=== PATIENT | female | born 1955 | race Caucasian/White ===

== ENCOUNTER 2025-05-06 10:58 | Outpatient (AMB) | payer MEDICARE, OTHER, SELFPAY ==
--- NOTE | 2025-05-06 11:00 | A.OFFVIS_ITS ---
Intake Visit Reasons: 5 month RLS Allergies No Known Allergies Allergy (Verified 05/06/25 11:03) Medication List - Last Reconciled 05/06/25 by Deneen Michel CNP amlodipine 5 mg PO DAILY bisacodyl 10 mg PO cholecalciferol (vitamin D3) 50 mcg PO DAILY hydrochlorothiazide 25 mg PO DAILY montelukast 10 mg PO BEDTIME pramipexole 1 mg PO BEDTIME roflumilast 500 mcg PO DAILY HPI Comments Details: 70-year-old woman with HTN, COPD, and RLS. She was doing okay. RLS symptoms were generally controlled with medication, occasionally she had to take additional half tablet of pramipexole for total of 1.5mg. Sleep was okay. Mood was okay. Walking with cane, no recent falls. [facility] Medical History (Updated 05/06/25 @ 11:02 by Deneen Michel CNP) Paresthesia of skin RLS (restless legs syndrome) COPD (chronic obstructive pulmonary disease) Hypertension Review of Systems Const Denies chills, Denies daytime sleepiness, Reports difficulty sleeping, Denies fatigue, Denies fever(s), Denies frequent falls, Denies headache(s), Denies increased appetite, Denies poor appetite, Denies snoring, Denies weakness, D enies weight gain and Denies weight loss Eyes Denies loss of vision ENT Denies vertigo, Denies dizziness and Denies headache(s) Card Denies chest pain at rest, Denies chest pain with activity, Denies syncope, Denies leg edema and Denies palpitations Resp Denies snoring GI Denies constipation, Denies heartburn, Denies diarrhea and Denies nausea Denies urinary frequency, Denies urinary incontinence and Denies urinary urgency Musc Denies abnormal gait, Denies numbness and Denies tingling Skin/Breast Denies dry skin and Denies rash Neuro Denies abnormal gait, Denies vertigo, Denies dizziness, Denies syncope, Denies frequent falls, Denies headache(s), Denies lack of coordination, Denies loss of vision, Denies memory loss, Denies numbness, Reports restless legs, Denies seizure-like activity, Denies tingling, Denies paresthesias, Denies tremor(s) and Denies weakness Psych Denies anxiety, Denies depression, Denies auditory hallucinations, Denies memory loss, Denies visual hallucinations and Denies suicidal ideation Endo Denies fatigue and Denies palpitations Physical Exam Const Other: General Appearance:? normal, in no acute distress. Skin:? no rashes, no significant birthmarks. Heart:? S1, S2 normal, no murmurs. Lungs:? clear anteriorly and posteriorly. Extremities:? no edema. Psych:? alert, oriented, cognitive function intact, cooperative with exam. Neuro Other: Mental Status:?Normal attention, orientation, memory and affect.? Cranial Nerves:?Pupils are equal, round and reactive to light. External occular muscles are intact. Visual young are full. Face is symmetrical. Facial sensations are normal. Tongue is midline. Palate elevates symmetrically. Shoulder shrugging is normal. Hearing to bedside conversation is normal. Sensory Exam:?....? Coordination:?No ataxia,?no titubation.? Gait Exam: With cane. Cerebellar Signs:?[id number] and [id number] is normal.? Pronator Drift:?Not present.? Involuntary Movements:?No tremors seen.? Speech:?Normal.? Results Reviewed Results Reviewed: NCV/EMG RLE 01/11/2023: Normal study Assessment & Plan Assessment & Plan (1) RLS (restless legs syndrome): Code(s): G25.81 - Restless legs syndrome Category: Medical Plan: Continue pramipexole 0.5mg 2 tablets before bedtime. Coding Level of Care Code Est Pt Level 3 (09819) Diagnoses RLS (restless legs syndrome) G25.81
--- OUTSIDE RECORDS SUMMARY | 2025-05-06 12:10 | XMS_ITS | Clinical Summary ---
Author Organization [facility] Address [address] [place] [address] Phone Care Team Providers Care Heavy Mobile Equipment Repairer Name Role Phone Hubert Santos MD Primary Care Pr ovider Allergies No known active allergies Medications albuterol HFA (PROAIR HFA ; PROVENTIL HFA ; VENTOLIN HFA) 90 mcg/actuation inhaler Inhale 2 Puffs into the lungs every 6 hours as needed for Cough, Wheezing or Shortness of Breath. 12/16/19 24 Active montelukast (SINGULAIR) 10 mg tablet Take 1 Tablet by mouth at bedtime. 07/18/20 23 Active pramipexole (MIRAPEX) 0.25 mg tablet Take 1 Tablet by mouth daily. 05/31/20 23 Active roflumilast (DALIRESP) 500 mcg tablet Take 1 Tablet by mouth daily. 07/18/20 23 Active multivit-min/ferr ous fumarate (MULTI VITAMIN ORAL) 1 qd Active fluticasone-umecl idinium-vilantero l (Trelegy Ellipta) 100-62.5-25 mcg inhaler INHALE 1 PUFF INTO THE LUNGS DAILY 60 each 11 08/10/20 24 Active ipratropium-albut González (DUONEB) 0.5-2.5 mg/3 mL nebulizer solutionIndicatio ns:COPD exacerbation (CMS/HCC V24, CMS/HCC V28),Chronic obstructive pulmonary disease, unspecified COPD type (CMS/HCC V24, CMS/HCC V28) Take 3 mL by nebulization every 6 (six) hours if needed for wheezing. 360 mL 3 11/21/19 25 Active rosuvastatin (CRESTOR) 10 mg tabletIndications :Mixed hyperlipidemia,Co ronary artery calcification seen on CAT scan Take 1 tablet (10 mg total) by mouth at bedtime. 90 each 1 02/15/20 25 025 Active aspirin 81 mg EC tabletIndications :Coronary artery calcification seen on CAT scan Take 1 tablet (81 mg total) by mouth 1 (one) time each day. 90 each 1 02/15/20 25 025 Active cetirizine (ZyrTEC) 10 mg tabletIndications :Seasonal allergic rhinitis due to pollen Take 1 tablet (10 mg total) by mouth 1 (one) time each day. 90 each 1 02/15/20 25 Active clindamycin (CLEOCIN T) 1 % gelIndications:Fo lliculitis Apply to area twice a day 60 g 02/15/20 25 026 Active Additional Information Patient not taking.Reported on 04/17/2025 cholecalciferol (VITAMIN D-3) 50 mcg (2,000 unit) tabletIndications :Osteopenia, unspecified location Take 1 tablet (2,000 Units total) by mouth 1 (one) time each day. 90 tablet 3 02/15/20 25 026 Active fluticasone propionate (FLONASE) 50 mcg/actuation nasal sprayIndications: Seasonal allergic rhinitis due to pollen USE 1 SPRAY IN EACH NOSTRIL TWICE DAILY 48 g 1 02/16/20 25 Active Additional Information Patient not taking.Reported on 04/17/2025 bisacodyL (DULCOLAX) 5 mg EC tablet Take 2 tablets by mouth right before beginning bowel prep. See instructions provided by the office 2 tablet 04/10/20 Active polyethylene glycol (Golytely) 236-22.74-6.74 -5.86 gram solution Take 4L by mouth once for one dose. May substitue any PEG. Starting at 2PM the day before your procedure drink 1 8oz glasses at your own pace until you complete half of the gallon. Finish 2nd half of the gallon at 8PM. 4000 mL 04/10/20 25 Active Additional Information Patient not taking.Reported on 04/17/2025 sodium,potassium, mag sulfates (Suprep Bowel Prep Kit) 17.5-3.13-1.6 gram recon soln bowel prep kit oral solution Take 177ML by mouth for 2 doses. SEE INSTRUCTIONS PROVIDED BY OFFICE. 1 kit 04/15/20 25 Active amLODIPine (NORVASC) 5 mg tabletIndications :Essential hypertension, benign Take 1 tablet (5 mg total) by mouth 1 (one) time each day. 90 tablet 04/16/20 25 Active hydroCHLOROthiazi de (HYDRODIURIL) 25 mg tabletIndications :Essential hypertension, benign Take 1 tablet (25 mg total) by mouth 1 (one) time each day. 90 tablet 04/16/20 25 Active amLODIPine (NORVASC) 5 mg tabletIndications :Essential hypertension, benign Take 1 tablet (5 mg total) by mouth 1 (one) time each day. 90 tablet 04/05/20 25 025 Discontin ued(Reord er) hydroCHLOROthiazi de (HYDRODIURIL) 25 mg tabletIndications :Essential hypertension, benign Take 1 tablet (25 mg total) by mouth 1 (one) time each day. 90 tablet 04/05/20 25 025 Discontin ued(Reord er) Active Problems Problem Noted Date Diagnosed Date Coronary artery calcification seen on CAT scan 0 02/14/2025 Assessment & Plan (02/14/2025 12:47 PM EDT): Start aspirin daily and Crestor Orders: rosuvastatin (CRESTOR) 10 mg tablet; Take 1 tablet (10 mg total) by mouth at bedtime. aspirin 81 mg EC tablet; Take 1 tablet (81 mg total) by mouth 1 (one) time each day. Prolapse of female pelvic organs 02/14/2025 Urge incontinence of urine 02/14/2025 Seasonal allergic rhinitis due to pollen 025 Assessment & Plan (02/14/2025 12:47 PM EDT): Use Zyrtec daily and Flonase twice daily Orders: cetirizine (ZyrTEC) 10 mg tablet; Take 1 tablet (10 mg total) by mouth 1 (one) time each day. fluticasone propionate (FLONASE) 50 mcg/actuation nasal spray; Administer 1 spray into each nostril 2 (two) times a day. Shake gently. Before first use, prime pump. After use, clean tip and replace cap. Osteopenia 07/01/2023 Assessment & Plan (02/14/2025 12:47 PM EDT): Start vitamin D daily. Will update DEXA scan and vitamin D level Orders: BD Bone Density DXA Axial Skeleton; Future Vitamin D 25 hydroxy; Future cholecalciferol (VITAMIN D-3) 50 mcg (2,000 unit) tablet; Take 1 tablet (2,000 Units total) by mouth 1 (one) time each day. Overweight (BMI 25.0-29.9) 07/01/2023 Serrated adenoma of colon 12/13/2022 Overview (06/24/2024): February 2023: Repeat in 1 year Assessment & Plan (02/14/2025 12:47 PM EDT): Overdue for colonoscopy and is referred Restless leg 11/10/2022 Assessment & Plan (02/14/2025 12:47 PM EDT): Continue [facility] neurology follow-up. Continue pramipexole 0.25 mg daily COPD (chronic obstructive pu lmonary disease) ([facility] V24, [facility] V28) 10/17/2017 Overview (06/24/2024): Last Assessment & Plan: Mrs. Lange, is a heavy smoker. She carries a diagnosis of stage II COPD as per her last pulmonary function test back in 2019. Right now she does have an acute mild COPD exacerbation. I do think at this point will be appropriate at short course of prednisone. She just completed a short course of azithromycin. If she does not improve I advised her to go to the hospital. In addition to advised her regarding quitting smoking, I explained her that the pathophysiology of COPD in simple terms and advised her to continue using her triple therapy with Trelegy. I will do a new pulmonary function testing her next appointment. We will also discuss more in detail regarding pulmonary rehab in her next appointment when we have the new pulmonary function test. Assessment & Plan (02/14/2025 12:47 PM EDT): Will treat COPD exacerbation with prednisone. Will obtain chest x-ray to rule out pneumonia. She will continue with albuterol as needed, DuoNeb as needed, montelukast nightly, Roflumilast daily and Trelegy daily Orders: XR Chest 2 Views; Future predniSONE (DELTASONE) 20 mg tablet; Take 2 tablets (40 mg total) by mouth 1 (one) time each day for 5 days. benzonatate (TESSALON) 100 mg capsule; Take 1 capsule (100 mg total) by mouth 3 (three) times a day if needed for cough. Do not crush or chew. Degenerative arthritis of lumbar spine 0 Herniated lumbar intervertebral disc 03/05/2010 Radiculitis, lumbosacral 03/05/2010 Hyperlipidemia 01/12/2010 Assessment & Plan (02/14/2025 12:47 PM EDT): Her calculated ASCVD risk is elevated. Will start Crestor 10 mg nightly. She will repeat labs in 3 months Orders: Lipid panel with reflex to direct LDL; Future Comprehensive metabolic panel; Future Hemoglobin A1c; Future rosuvastatin (CRESTOR) 10 mg tablet; Take 1 tablet (10 mg total) by mouth at bedtime. Tobacco use disorder 08/22/2006 Assessment & Plan (02/14/2025 12:47 PM EDT): Smoking 1 pack per day of cigarettes. Not ready to quit. Up-to-date with low- dose CT for lung cancer screening which was done in August 2024 Essential hypertension, benign 07/16/2005 Assessment & Plan (02/14/2025 12:47 PM EDT): Current medications. Blood pressure is stable Orders: Comprehensive metabolic panel; Future amLODIPine (NORVASC) 5 mg tablet; Take 1 tablet (5 mg total) by mouth 1 (one) time each day. hydroCHLOROthiazide (HYDRODIURIL) 25 mg tablet; Take 1 tablet (25 mg total) by mouth 1 (one) time each day. Resolved Problems Problem Noted Date Diagnosed Date Resolved Date Folliculitis 02/14/2025 02/14/2025 Assessment & Plan (02/14/2025 12:47 PM EDT): She will apply warm compresses and use clindamycin gel to the area until resolved Orders: clindamycin (CLEOCIN T) 1 % gel; Apply to area twice a day Cigarette smoker 11/16/2023 02/14/2025 Encounters Date Type Department Care Team Description 05/02/2025 Telephone Adult Medicine [address] [phone] Hubert Santos MD Referral (Dermatology ) 05/02/2025 Telephone Urogynecology [address] [place] [phone] Martha Arevalo MD bump on leg 04/30/2025 3:15 PM EDT Office Visit Urogynecology [address] [phone] Martha Arevalo MD Vulvar lesion (Primary Dx); Prolapse of anterior vaginal wall; Prolapse of posterior vaginal wall; Urge incontinence; Urinary urgency; Nocturia 04/29/2025 Telephone Gastroenterology - [address] [place] [phone] Chad Adam MD Results 04/24/2025 9:17 AM EDT Anesthesia Event [facility] [address] [place] [phone] Lorne Hendricks MD 04/24/2025 7:59 AM EDT - 04/24/2025 11:59 PM EDT Hospital Encounter [facility] [address] [place] [phone] Chad Adam MD Barnes, Tyanna R, CRNA Dasilva, John E, MD History of colon polyps Discharge Disposition: Home or Self Care 04/16/2025 Telephone Adult Medicine [address], [place] [phone] Flor Stafford RN 04/15/2025 Telephone Gastroenterology - [address] [facility] [address] [facility] [address] [place] [phone] Chad Adam MD 03/25/2025 3:00 PM EDT Ancillary Procedure Pulmonolgy - [place] [address] [facility] [address] [place] [phone] Chronic obstructive pulmonary disease, unspecified COPD type ([facility]/HCC V24, CMS/[facility] V28) 03/25/2025 Telephone Pulmonolgy [facility] [address] [facility] [address] [place] [phone] Kiana Gallegos NP Forms/questionnaires 03/11/2025 Telephone Pulmonolgy [facility] [address] [facility] [address] [place] [phone] Marguerite Thomas MA 03/07/2025 2:00 PM EDT Procedure visit Urogynecology [address] [phone] Gabi Booker NP Uterine prolapse (Primary Dx); Prolapse of anterior vaginal wall; Vulvar discomfort 03/01/2025 Telephone Adult [address] [phone] Hubert Santos MD Nausea; Abdominal Pain 02/26/2025 Telephone Adult Medicine [address] [phone] Andria Sharif MA call back 02/14/2025 12:45 PM EDT - 02/14/2025 11:59 PM EDT Hospital Encounter [address] [phone] Chronic obstructive pulmonary disease with acute exacerbation ([facility] V24, [facility] V28) Discharge Disposition: Home or Self Care 02/14/2025 12:00 PM EDT Office Visit Adult Medicine [place] - [address] [phone] Hubert Santos MD Annual wellness visit (Primary Dx); Mixed hyperlipidemia; Essential hypertension, benign; Tobacco use disorder; Restless leg; Osteopenia, unspecified location; Chronic obstructive pulmonary disease with acute exacerbation (CMS/HCC V24, CMS/HCC V28); Asymptomatic menopausal state; Encounter for screening for diabetes mellitus; Coronary artery calcification seen on CAT scan; Colon cancer screening; Serrated adenoma of colon; Folliculitis; Seasonal allergic rhinitis due to pollen 02/12/2025 10:00 AM EDT Office Visit Urogynecology - [address] [phone] Martha Arevalo MD Prolapse of anterior vaginal wall (Primary Dx); Uterine prolapse; Prolapse of posterior vaginal wall; Urge incontinence; Urinary urgency; Nocturia from Last 3 Months Immunizations Name Administration Dates Next Due Influenza trivalent, 0.5mL ( Fluzone High-dose) 65yo and older 05/25/2023,07/15/2022,07/10/2021 Moderna (age 6mo & older) Bi valent, COVID-19, 0.5 mL or 0.25 mL dosage 06/01/2022 PPD Test 08/05/2004 Pfizer (ages 12 & older) Bivalent, COVID-19 05/20 Pneumococcal conjugate 20 va lent (Prevnar 20, PCV 20) 2mo and older 05/12/2023 RSV, bivalent, protein subun it RSVpreF, 0.5mL, Preservative Free (Arexvy) 60yo and older 05/25/2023 Tdap Tetanus diptheria acell ular pertussis (Boostrix; Adacel) 7yo and older 05/12/2023,01/12/2010 Surgical History Surgery Date Site/Laterality Comments OTHER SURGICAL HISTORY PROCEDURE: DENIES PREVIOUS SURGERY Medical History Medical History Date Comments Essential hypertension, benign D X:Essential hypertension, benign; COMMENT: on atenolol, started 12/24 Tobacco abuse DX:Tobacco abuse Hyperlipidemia DX:Hyperlipidemi a Cigarette smoker 11/16/2023 Family History Medical History Relation Name Comments Other Dermatological Disorders Father Specifics unknown father with problems on scalp, face, and arms some burned off and some surgically corrected Stroke Maternal Grandfather Breast cancer Mother Hypertension Sister 1 Colon cancer Neg Hx Endometrial cancer Neg Hx Ovarian cancer Neg Hx Relation Name Status Comments Brother heart failure 5 5 Father Alive Maternal Grandfather Mother Sister 1 Sister 2 Alive x2 Social History Tobacco Use Types Packs/Day Years Used Date Smoking Tobacco: Every Day Cigarettes 1 55.1 Started: 03/19/1970 Smokeless Tobacco: Never Tobacco Cessation:Ready to Q uit: Not Asked; Counseling Given: Not Answered Alcohol Use Standard Drinks/Week Comments Yes 0 (1 standard drink = 0.6 oz pur e alcohol) Interpersonal Safety Answer Date Record ed Physical Abuse 04/24/2025 Verbal Abuse 04/24/2025 Comments Unknown Sex and Gender Information Value Date Recorded Sex Assigned at Female 08/31/2024 11:27 AM EST Legal Sex Female 7:21 AM EST Gender Identity Female 08/31/2024 11:27 AM EST Sexual Orientation Straight 08/31/2024 11 :27 AM EST Obstetrics History Last Filed Vital Signs Vital Sign Reading Time Taken Comments Blood Pressure 129/66 04/30/2025 3:15 PM EDT Pulse 82 04/30/2025 3:15 PM EDT Temperature 36.4 C (97.5 F) 04/24/2025 9:43 AM EDT Respiratory Rate 20 04/24/2025 10:03 AM EDT Oxygen Saturation 96% 04/24/2025 10:03 AM EDT Inhaled Oxygen Concentration - - Weight 68.9 kg (152 lb) 04/30/2025 3:15 PM EDT Height 152.4 cm (5') 04/30/2025 3:15 PM EDT Body Mass Index 29.69 04/30/2025 3:15 PM EDT Plan of Treatment Upcoming Encounters Date Type Department Care Team (Late st Contact Info) Description 06/22/2025 11:30 AM EDT Appointment Radiology Department [address] [phone] 06/24/2025 9:30 AM EDT Office Visit Adult Medicine [address] [phone] OgHubert kerns MD [address] [place] [address] 07/22/2025 11:15 AM EST Appointment Bone Density - [place] [address] [place] [phone] 08/20/2025 11:25 AM EST Office Visit Pulmonolgy - [place] [address] [facility] [address] [place] [phone] Kiana Gallegos, SHANNAN [address] [facility] [address] [place] [address] Health Maintenance Due Date Last Done Comments Social Influencers of Health Screening 08/28/2022 Zoster Vaccines (2 of 2) 08/16/2023 06/21/2023 COVID-19 Vaccine ( season) 2024 05/16/2024, 06/21/2023, 06/01/2022, Additional history exists Influenza Vaccine (#1) 2025 , 05/25/2023, 07/15/2022, Additional history exists Lung Cancer Screening (Low Dose CT) 08/31/2025 08/31/2024, 07/26/2023, 07/21/2022, Additional history exists Medicare Annual Wellness Visit 02/14/2026 02/14/2025 Hypertension/CHF/CAD Annual BMP Blood Test 04/15/2026 04/15/2025, 03/29/2024, 03/29/2024 Colorectal Cancer Screening: Colonoscopy 04/24/2026 04/24/2025, 04/17/2025 Falls Risk Assessment 04/24/2026 04/24/2025 , 02/14/2025, 02/14/2025 Breast Cancer Screening 06/16/2026 06/16/20 24, 06/16/2024, 05/07/2023, Additional history exists Cholesterol Screening (Lipid Panel) 04/15/2030 04/15/2025, 03/29/2024, 03/29/2024 Osteoporosis Screening (Bone Density Screening) 2033 2023 DTaP,Tdap,and Td Vaccines (3 - Td or Tdap) 05/12/2033 05/12/2023, 01/12/2010 Hepatitis C Screening Completed 10/17/2017 Pneumococcal Vaccine: 50+ Years Completed 05/12/2023, 06/27/2020 RSV Immunization Adult Patients Completed 05/25/2023 Depression Screening Completed 02/14/2025 HIB Vaccines Aged Out No longer eligi ble based on patient's age to complete this topic HPV Vaccines Aged Out No longer eligi ble based on patient's age to complete this topic Hepatitis A Vaccines Aged Out No long er eligible based on patient's age to complete this topic Hepatitis B Vaccines Aged Out No long er eligible based on patient's age to complete this topic IPV Vaccines Aged Out No longer eligi ble based on patient's age to complete this topic MMR Vaccines Aged Out No longer eligi ble based on patient's age to complete this topic Meningococcal ACWY Vaccine Aged Out N o longer eligible based on patient's age to complete this topic Meningococcal B Vaccine Aged Out No l onger eligible based on patient's age to complete this topic RSV Immunization Patients Under 20 months Aged Out No longer eligible based on patient's age to complete this topic Varicella Vaccines Aged Out No longer eligible based on patient's age to complete this topic Procedures Procedure Name Priority Date/Time Associated Diagnosis Comments COLONOSCOPY Routine 04/24/2025 9:42 AM EDT History of colon polyps TISSUE EXAM Routine 04/24/2025 9:37 AM EDT History of colon polyps COLONOSCOPY Routine 04/17/2025 3:45 PM EDT LIPID PANEL WITH REFLEX TO DIRECT LDL Routine 04/15/2025 9:17 AM EDT Mixed hyperlipidemia COMPREHENSIVE METABOLIC PANEL Routine 04/15/2025 9:17 AM EDT Mixed hyperlipidemia Essential hypertension, benign HEMOGLOBIN A1C Routine 04/15/2025 9:17 AM EDT Mixed hyperlipidemia Encounter for screening for diabetes mellitus VITAMIN D 25 HYDROXY Routine 04/15/2025 9:17 AM EDT Osteopenia, unspecified location PULMONARY FUNCTION TESTING Routine 03/25/2025 3:31 PM EDT Chronic obstructive pulmonary disease, unspecified COPD type (CMS/HCC V24, CMS/HCC V28) XR CHEST 2 VIEWS Routine 02/14/2025 12:5 4 PM EDT Chronic obstructive pulmonary disease with acute exacerbation (CMS/HCC V24, CMS/HCC V28) POC URINE AUTO W/O MICRO Routine 02/12/2025 10:13 AM EDT Uterine prolapse CT LUNG SCREENING Routine 08/31/2024 11: 39 AM EST Smoker SCREENING MAMMOGRAPHY BI 2-VIEW BREAST INC CAD Routine 06/16/2024 10:57 AM EDT Encounter for screening mammogram for malignant neoplasm of breast DXA BONE DENSITY STUDY 1+ SITS AXIAL SKEL Routine 2023 11:32 AM EDT Other specified personal risk factors, not elsewhere classified HEPATITIS C SCREENING Routine 10/17/2017 from Last 3 Months or Most Recently Relevant to Health Maintenance Results * COLONOSCOPY Anesthesia - [facility]; [facility] ENDOSCOPY (04/24/2025 9:42 AM EDT) Only the most recent of2 resultswithin the time period is included. Anatomical Region Laterality Modality Other 04/24/2025 9:16 AM EDT Impressions 04/24/2025 9:48 AM EDT - Diverticulosis in the sigmoid colon and in the descending colon. - One 13 mm polyp in the proximal sigmoid colon, removed with a hot snare. Resected and retrieved. Tattooed. Clip (MR conditional) was placed. Clip oven baker: Sensicore. - The examination was otherwise normal on direct and retroflexion views. - A single (solitary) ulcer in the proximal ascending colon. Biopsied. Recommendation: - Await pathology results. - Repeat colonoscopy in 1 year for surveillance. Narrative 04/24/2025 9:[address] [facility] Patient Name: Teresita Lange Procedure Date: 04/24/2025 9:16 AM Date of : 1955 Age: 70 Room: ROOM 15 Gender: Female Note Status: Finalized Attending MD: Chad Adam MD, Procedure Date No Time: 04/24/2025 Procedure: Colonoscopy Indications: High risk colon cancer surveillance: Personal history of colonic polyps Providers: Chad Adam MD Referring MD: Chad Adam MD Medicines: Propofol per Anesthesia Complications: No immediate complications. Estimated Blood Loss: Estimated blood loss was minimal. Procedure: Pre-Anesthesia Assessment: - ASA Grade Assessment: II - A patient with mild systemic disease. After I obtained informed consent, the scope was passed under direct vision. Throughout the procedure, the patient's blood pressure, pulse, and oxygen saturations were monitored continuously.The Colonoscope was introduced through the anus and advanced to the cecum, identified by appendiceal orifice and ileocecal valve. The colonoscopy was performed without difficulty. The patient tolerated the procedure well. The quality of the bowel preparation was good. Findings: The perianal and digital rectal examinations were normal. Multiple diverticula were found in the sigmoid colon and descending colon. A 13 mm polyp was found in the proximal sigmoid colon. The polyp was flat. The polyp was removed with a hot snare. Resection and retrieval were complete. Area was tattooed with an injection of Alyssa ink. To prevent bleeding after the polypectomy, one hemostatic clip was successfully placed (MR conditional). Clip oven baker: Sensicore. There was no bleeding at the end of the procedure. The exam was otherwise without abnormality on direct and retroflexion views. A single (solitary) seven mm ulcer was found in the proximal ascending colon. No bleeding was present. No stigmata of recent bleeding were seen. Biopsies were taken with a cold forceps for histology. I suspect this is focal ischemia Procedure Code(s): --- Professional --- 22964, Colonoscopy, flexible; with removal of tumor(s), polyp(s), or other lesion(s) by snare technique 07661, Colonoscopy, flexible; with directed submucosal injection(s), any substance 07517, 59, Colonoscopy, flexible; with biopsy, single or multiple Diagnosis Code(s): --- Professional --- Z86.010, Personal history of colonic polyps D12.5, Benign neoplasm of sigmoid colon K63.3, Ulcer of intestine K57.30, Diverticulosis of large intestine without perforation or abscess without bleeding CPT copyright 2020 [employer]. All rights reserved. The codes documented in this report are preliminary and upon certified coder review may be revised to meet current compliance requirements. Chad Adam MD 04/24/2025 9:48:16 AM This report has been signed electronically.Chad Adam MD Number of Addenda: 0 Note Initiated On: 04/24/2025 9:16 AM Scope In: Scope Out: Endoscopy Department at [facility] - [address] [place] [phone] Procedure Note Chad Adam MD - 04/24/2025 [facility] Patient Name: Teresita Lange Procedure Date: 04/24/2025 9:16 AM Date of : 1955 Age: 70 Room: ROOM 15 Gender: Female Note Status: Finalized Attending MD: Chad Adam MD, Procedure Date No Time: 04/24/2025 Procedure: Colonoscopy Indications: High risk colon cancer surveillance: Personalhistory of colonic polyps Providers: Chad Adam MD Referring MD: Chad Adam MD Medicines: Propofol per Anesthesia Complications: No immediate complications. Estimated Blood Loss: Estimated blood loss was minimal. Procedure: Pre-Anesthesia Assessment: - ASA Grade Assessment: II - A patient with mild systemic disease. After I obtained informed consent, the scope was passed under direct vision. Throughout theprocedure, the patient's blood pressure, pulse, and oxygen saturations were monitored continuously.The Colonoscope was introduced through the anus and advanced to the cecum, identified by appendiceal orifice and ileocecal valve. The colonoscopy was performed without difficulty. The patient tolerated the procedure well. The quality of the bowel preparation was good. Findings: The perianal and digital rectal examinations were normal. Multiple diverticula were found in the sigmoidcolon and descending colon. A 13 mm polyp was found in the proximal sigmoidcolon. The polyp was flat. The polyp was removed with ahot snare. Resection and retrieval were complete. Areawas tattooed with an injection of Alyssa ink. To prevent bleeding after the polypectomy, one hemostatic clip was successfully placed (MR conditional). Clip oven baker: Weldon Xignite. There was nobleeding at the end of the procedure. The exam was otherwise without abnormality ondirect and retroflexion views. A single (solitary) seven mm ulcer was found in the proximal ascending colon. No bleeding was present.No stigmata of recent bleeding were seen. Biopsieswere taken with a cold forceps for histology. I suspect this is focal ischemia Procedure Code(s): --- Professional --- 18251, Colonoscopy, flexible; with removal of tumor(s), polyp(s), or other lesion(s) by snare technique 44448, Colonoscopy, flexible; with directedsubmucosal injection(s), any substance 70686, 59, Colonoscopy, flexible; with biopsy,single or multiple Diagnosis Code(s): --- Professional --- Z86.010, Personal history of colonic polyps D12.5, Benign neoplasm of sigmoid colon K63.3, Ulcer of intestine K57.30, Diverticulosis of large intestine without perforation or abscess without bleeding CPT copyright 2020 [employer]. All rights reserved. The codes documented in this report are preliminary and upon certified coder reviewmay be revised to meet current compliance requirements. Chad Adam MD 04/24/2025 9:48:16 AM This report has been signed electronically.Chad Adam MD Number of Addenda: 0 Note Initiated On: 04/24/2025 9:16 AM Scope In: Scope Out: Endoscopy Department at [facility] - [address] [place] [phone] IMPRESSION: - Diverticulosis in the sigmoid colon and in the descending colon. - One 13 mm polyp in the proximal sigmoid colon, removed with a hot snare. Resected and retrieved. Tattooed. Clip (MR conditional) was placed. Clip oven baker: Weldon Xignite. - The examination was otherwise normal on directand retroflexion views. - A single (solitary) ulcer in the proximalascending colon. Biopsied. Recommendation: - Await pathology results. - Repeat colonoscopy in 1 year for surveillance. us Chad Adam MD GI~PROCEDURE ORDERABLES Fin al Result * Tissue exam (04/24/2025 9:37 AM EDT) Final Diagnosis A. Large Intestine, Sigmoid Colon, polyp: - Tubular adenoma. B. Large Intestine, Right/Ascending Colon, ulcer biopsy: - Colonic mucosa with ulcer and granulation tissue. - Negative for dysplasia. Note: Part B, the etiology of ulcer is non-specific. 04/25/2025 12:52 PM EDT [facility] Gross Description A. Large Intestine, Sigmoid Colon, polyp: Labeled sig colon polyp . Received in formalin, is an approximately 0.7 cm in greatest diameter soft to rubbery, borden-pink to red, polypoid tissue fragment, inked green at the margin, admixed with fecal/food debris, which is wrapped in paper and submitted in toto in one cassette, one piece, multiple levels. B. Large Intestine, Right/Ascending Colon, ulcer biopsy: Labeled ascend colon ulcer bio . Received in formalin are two soft to rubbery, borden-pink to red, tissue fragments, approximately measuring 0.45 cm and 0.5 cm in greatest diameters, which are wrapped in paper and submitted in toto in one cassette, two pieces, multiple levels. hs/DG 04/25/2025 12:52 PM EDT [facility] Disclaimer Unless otherwise specified, all tissue is 10% NB formalin fixed and paraffin embedded. 04/25/2025 12:52 PM EDT [facility] Tissue Ascending colon structure / Unknown 04/24/2025 9:37 AM EDT 04/24/2025 10:26 AM EDT Tissue specimen (specimen) Sigmoid colon structure / Unknown 04/24/2025 9:40 AM EDT 04/24/2025 10:26 AM EDT us Chad Adam MD LAB PATHOLOGY ORDERABLES Fi nal Result [facility] [address] [place] [address], * Lipid panel with reflex to direct LDL (04/15/2025 9:17 AM EDT) Cholesterol 168 0 - 200 mg/dL LAB CHEMISTRY METHOD 04/15/2025 1:34 PM EDT [facility] Triglycerides 129 0 - 150 mg/dL LAB CHEMISTRY METHOD 04/15/2025 1:34 PM EDT [facility] HDL 83 >=40 mg/dL LAB CHEMISTRY METHOD 04/15/2025 1:34 PM EDT [facility] LDL Calculated 59 0 - 100 mg/dL LAB CHEMISTRY METHOD 04/15/2025 1:34 PM EDT [facility] VLDL Cholesterol Greg 25.8 mg/dL LAB CHEMISTRY METHOD 04/15/2025 1:34 PM EDT [facility] Non HDL Chol. (LDL+VLDL) 85 <145 mg/dL LAB CHEMISTRY METHOD 04/15/2025 1:34 PM EDT [facility] Chol/HDL Ratio 2.0 0.0 - 4.4 LAB CHEMISTRY METHOD 04/15/2025 1:34 PM EDT [facility] Blood Venous blood specimen / Unknown Venipuncture / Unknown 04/15/2025 9:17 AM EDT 04/15/2025 9:17 AM EDT Hubert Santos MD LAB BLOOD ORDERA BLES Final Result [facility] [address] [place] [address], * Vitamin D 25 hydroxy (04/15/2025 9:17 AM EDT) Pathologist [facility] Vit D, 25-Hydroxy 34.6 30.0 - 80.0 ng/mL LAB CHEMISTRY METHOD 04/15/2025 2:05 PM EDT [facility] Blood Venous blood specimen / Unknown Venipuncture / Unknown 04/15/2025 9:17 AM EDT 04/15/2025 9:17 AM EDT Hubert Santos MD LAB BLOOD ORDERA BLES Final Result Performing Organization Address City/[facility]/ZIP Co de Phone Number [facility] [address] [place] [address], [place] [phone] * Hemoglobin A1c (04/15/2025 9:17 AM EDT) Pathologist [facility] Hemoglobin A1C 5.5 <6.5 % LAB CHEMISTRY METHOD 04/15/2025 1:07 PM EDT [facility] Mean Bld Glu Estim. 111 mg/dL LAB CHEMISTRY METHOD 04/15/2025 1:07 PM EDT [facility] Blood Venous blood specimen / Unknown Venipuncture / Unknown 04/15/2025 9:17 AM EDT 04/15/2025 9:17 AM EDT Hubert Santos MD LAB BLOOD ORDERA BLES Final Result [facility] [address] [place] [address], [place] [phone] * (ABNORMAL) Comprehensive metabolic panel (04/15/2025 9:17 AM EDT) Pathologist [facility] Sodium 132(L) 133 - 145 mmol/L LAB CHEMISTRY METHOD 04/15/2025 1:34 PM EDT [facility] Potassium 3.7 3.5 - 5.5 mmol/L LAB CHEMISTRY METHOD 04/15/2025 1:34 PM EDT [facility] Chloride 95(L) 96 - 110 mmol/L LAB CHEMISTRY METHOD 04/15/2025 1:34 PM EDT [facility] CO2 31 21 - 32 mmol/L LAB CHEMISTRY METHOD 04/15/2025 1:34 PM EDT [facility] Anion Gap 6 3 - 11 LAB CHEMISTRY METHOD 04/15/2025 1:34 PM [facility] Glucose 93 70 - 100 mg/dL LAB CHEMISTRY METHOD 04/15/2025 1:34 PM [facility] BUN 14 5 - 25 mg/dL LAB CHEMISTRY METHOD 04/15/2025 1:34 PM [facility] Creatinine 0.63 0.50 - 1.10 mg/dL LAB CHEMISTRY METHOD 04/15/2025 1:34 PM [facility] eGFR 95 >=60 mL/min/1. 73m2 LAB CHEMISTRY METHOD 04/15/2025 1:34 PM [facility] Comment:Calculation based on the Chronic Kidney Disease Epidemiology Collaboration (CKD-EPI) equation refit without adjustment for race. BUN/Creatinine Ratio 22.2 LAB CHEMISTRY METHOD 04/15/2025 1:34 PM [facility] Calcium 9.3 8.5 - 10.5 mg/dL LAB CHEMISTRY METHOD 04/15/2025 1:34 PM [facility] AST (SGOT) 16 10 - 42 unit/L LAB CHEMISTRY METHOD 04/15/2025 1:34 PM [facility] ALT (SGPT) 21 10 - 60 unit/L LAB CHEMISTRY METHOD 04/15/2025 1:34 PM [facility] Alkaline Phosphatase 89 42 - 121 unit/L LAB CHEMISTRY METHOD 04/15/2025 1:34 PM [facility] Total Protein 6.8 6.0 - 8.0 g/dL LAB CHEMISTRY METHOD 04/15/2025 1:34 PM [facility] Albumin 3.9 3.2 - 5.0 g/dL LAB CHEMISTRY METHOD 04/15/2025 1:34 PM [facility] Total Bilirubin 0.5 0.0 - 1.4 mg/dL LAB CHEMISTRY METHOD 04/15/2025 1:34 PM EDT [facility] Blood Venous blood specimen / Unknown Venipuncture / Unknown 04/15/2025 9:17 AM EDT 04/15/2025 9:17 AM EDT Hubert Santos MD LAB BLOOD ORDERA BLES Final Result [facility] [address] [place] [address], * XR Chest 2 Views (02/14/2025 12:54 PM EDT) Anatomical Region Laterality Modality Body Radiographic Nava ging 02/14/2025 2:41 PM EDT Narrative 02/14/2025 2:42 PM EDT Chest, 2 views. History cough. Chronic obstructive pulmonary disease. Shortness of breath. Comparison with prior studies, latest from 07/05/2022. Lungs are hyperinflated. There is no pneumothorax, pleural effusions or congestive heart failure. There is mild scarring at the left base. Cardiomediastinal silhouette is unremarkable. CONCLUSIONS: No acute radiographic abnormalities. No significant interval change. -------- FINAL REPORT -------- Dictated By: Lisa Tamayo Dictated Date: 02/14/2025 14:41 ET Assigned Physician: Lisa Tamayo Reviewed and Electronically Signed By: Lisa Tamayo Signed Date: 02/14/2025 14:42 ET Workstation ID: [id number] Transcribed By: Self Edit Transcribed Date: 02/14/2025 14:41 ET Procedure Note Lisa Tamayo MD - 02/14/2025 Chest, 2 views. History cough. Chronic obstructive pulmonary disease. Shortness ofbreath. Comparison with prior studies, latest from 07/05/2022. Lungs arehyperinflated. There is no pneumothorax, pleural effusions or congestiveheart failure. There is mild scarring at the left base.Cardiomediastinal silhouette is unremarkable. CONCLUSIONS: No acute radiographic abnormalities. No significant intervalchange. -------- FINAL REPORT -------- Dictated By: Lisa Tamayo Dictated Date: 02/14/2025 14:41 ET Assigned Physician: Lisa Tamayo Reviewed and Electronically Signed By: Lisa Tamayo Signed Date: 02/14/2025 14:42 ET Workstation ID: [id number] Transcribed By: Self Edit Transcribed Date: 02/14/2025 14:41 ET Hubert Santos MD IMG XR PROCEDURE S Final Result * POC Urine Auto W/O Micro (02/12/2025 10:13 AM EDT) Glucose UA POC Negative Negative, Trace mg/dL Bilirubin UA POC Negative Negative, Small Ketones UA POC Negative Negative, Trace Specific Waves UA POC 1.015 Blood UA POC Negative Negative, Large PH UA POC 7.5 Protein UA POC Negative Negative, >=300 mg/dL Urobilinogen UA POC 0.2 E.U./dL mg/dL Nitrite UA POC Negative Negative Leukocytes UA POC Negative Negative Urine Urine specimen obtained by clean catch procedure / Unknown 02/12/2025 10:13 AM EDT Martha Arevalo MD POINT OF CARE TEST ENTER/EDIT OR DERABLES Final Result * CT Lung Screening (08/31/2024 11:39 AM EST) Anatomical Region Laterality Modality Chest Computed Tomogra phy 09/03/2024 12:0 5 PM EST Impressions 09/03/2024 12:19 PM EST Impression: No suspicious developing pulmonary nodule. No significant change. Lung-RADS Category: Lung-RADS 2: Nodule(s) with benign appearance or behavior. Continue annual screening with Low Dose Chest CT in 12 months. Recommendations: Continue annual screening with low-dose noncontrast chest CT in 12 months. -------- FINAL REPORT -------- Dictated By: Charlette uGzman Dictated Date: 09/03/2024 12:05 ET Assigned Physician: Charlette Guzman Reviewed and Electronically Signed By: Charlette Guzman Signed Date: 09/03/2024 12:19 ET Workstation ID: [id number] Transcribed By: Self Edit Transcribed Date: 09/03/2024 12:05 ET Narrative 09/03/2024 12:19 PM EST History: 69 year-old 55 pack-year current smoker, asymptomatic, for lung cancer screening. Comparison: 07/21/23 Technique: Helical volumetric imaging of the thorax was performed, using low- dose technique, without IV contrast. DLP: 165.56 mGy/cm CTDIvol: 4.83 mGy GE SeatNinjapeed VCT Iterative reconstruction technique Findings: Lungs and Airways: The trachea and central bronchial tree remain patent. Centrilobular emphysema is again seen. Minimal subsegmental atelectasis is noted at the lung bases, unchanged. There is a 10 mm part solid nodule in the superior segment of the left lower lobe (image 123 series 3) with solid component approximately 5 mm in aggregate size, without significant change dating back to 2021. A 3 mm solid, noncalcified nodule, also in the superior segment of the left lower lobe (image 114 series 3) is unchanged dating back to the initial, [address] No suspicious developing nodule is seen. Pleura: No pleural or pericardial effusions are seen. Base of neck, mediastinum and heart: The heart remains normal in size. Atherosclerotic calcification of the thoracic aorta and coronary arteries (three-vessel) is again noted. No developing thoracic lymphadenopathy is seen. There is no suspicious thyroid nodule. Soft tissues: The overlying soft tissues are unremarkable. Abdomen: This study was performed without contrast and with lower than standard dose. These factors reduce the sensitivity for detection of small lesions in the upper abdomen. No significant abnormality is seen. Procedure Note Charlette Guzman MD - 09/03/2024 History: 69 year-old 55 pack-year current smoker, asymptomatic, for lungcancer screening. Comparison: 07/21/23 Technique: Helical volumetric imaging of the thorax was performed, usinglow-dose technique, without IV contrast. DLP: 165.56 mGy/cm CTDIvol: 4.83 mGy GE SeatNinjapeed VCT Iterative reconstruction technique Findings: Lungs and Airways: The trachea and central bronchial tree remain patent.Centrilobular emphysema is again seen. Minimal subsegmental atelectasis isnoted at the lung bases, unchanged. There is a 10 mm part solid nodule in the superior segment of the leftlower lobe (image 123 series 3) with solid component approximately 5 mm inaggregate size, without significant change dating back to 2021. A 3 mmsolid, noncalcified nodule, also in the superior segment of the left lowerlobe (image 114 series 3) is unchanged dating back to the initial, 2019lung screening CT. No suspicious developing nodule is seen. Pleura: No pleural or pericardial effusions are seen. Base of neck, mediastinum and heart: The heart remains normal in size.Atherosclerotic calcification of the thoracic aorta and coronary arteries(three-vessel) is again noted. No developing thoracic lymphadenopathy isseen. There is no suspicious thyroid nodule. Soft tissues: The overlying soft tissues are unremarkable. Abdomen: This study was performed without contrast and with lower thanstandard dose. These factors reduce the sensitivity for detection of smalllesions in the upper abdomen. No significant abnormality is seen. IMPRESSION: Impression: No suspicious developing pulmonary nodule. No significant change. Lung-RADS Category: Lung-RADS 2: Nodule(s) with benign appearance orbehavior. Continue annual screening with Low Dose Chest CT in 12 months. Recommendations: Continue annual screening with low-dose noncontrast chestCT in 12 months. -------- FINAL REPORT -------- Dictated By: Charlette Guzman Dictated Date: 09/03/2024 12:05 ET Assigned Physician: Charlette Guzman Reviewed and Electronically Signed By: Charlette Guzman Signed Date: 09/03/2024 12:19 ET Workstation ID: [id number] Transcribed By: Self Edit Transcribed Date: 09/03/2024 12:05 ET us Ragini Wise MD IMG CT PROCEDURES Final Result * SCREENING MAMMOGRAPHY BI 2-VIEW BREAST INC CAD (06/16/2024 10:57 AM EDT) Anatomical Region Laterality Modality Radiographic Nava ging 05/07/2023 11:4 2 AM EDT Narrative 06/16/2024 3:59 PM EDT This is a summary report. The complete report is available in the patient's medical record. If you cannot access the medical record, please contact the sending organization for a detailed fax or copy. Full field digital screening tomosynthesis mammography, reviewed with CAD and compared to previous. The breast tissue is heterogeneously dense, limiting sensitivity. No suspicious mass, architectural distortion or suspicious calcifications are identified. IMPRESSION: : Dense breast tissue, limiting the sensitivity of mammography. No mammographic evidence of malignancy. BIRADS 1-Negative; N. Breast density: The breasts are heterogeneously dense, which may obscure small masses. 5 year breast cancer risk assessment 3.2 % Lifetime breast cancer risk assessment 9.2 % Breast cancer risk category Low (<15%) Location: [facility], [address] [place] [address], [id number], [phone] Procedure Note Lisa Tamayo MD - 07/04/2024 This is a summary report. The complete report is available in thepatient's medical record. If you cannot access the medical record, pleasecontact the sending organization for a detailed fax or copy. Full field digital screening tomosynthesis mammography, reviewed with CADand compared to previous. The breast tissue is heterogeneously dense,limiting sensitivity. No suspicious mass, architectural distortion orsuspicious calcifications are identified. IMPRESSION: : Dense breast tissue, limiting the sensitivity of mammography. Nomammographic evidence of malignancy. BIRADS 1-Negative; N. Breast density: The breasts are heterogeneously dense, which may obscuresmall masses. 5 year breast cancer risk assessment 3.2 % Lifetime breast cancer risk assessment 9.2 % Breast cancer risk category Low (<15%) Location: [facility], [address] [place] [address], [address], [phone] Ava Andres MD IMG XR PROCEDURES Final Result * DXA BONE DENSITY STUDY 1+ SITS AXIAL SKEL (2023 11:32 AM EDT) Anatomical Region Laterality Modality Bone Densitometr y 11/10/2022 11:4 8 AM EST Narrative 2023 1:05 PM EDT BONE DENSITY Lumbar Spine T-score is +2.4 (SD relative to 20-29 y/o adult) Z-score is +4.4 (SD relative to age matched peers) This is normal by criteria defined by the WHO. Left Hip T-score is -1.7 Z-score is 0.0 This is consistent with osteopenia by criteria defined by the WHO. Impression: Based on the World Health Organization criteria, Teresita Lange should be classified as having osteopenia. This patient has a 21% risk of major osteoporotic fracture and a 7.0% risk of hip fracture over the next 10 years. (World Health Organization Fracture Risk Assessment) [facility] Department of Internal Medicine recommends using National Osteoporosis Foundation (NOF) guidelines in treatment decisions related to osteoporosis. NOF guidelines suggest considering treatment for postmenopausal women and men aged 50 or older presenting with the following: History of hip or vertebral fracture. T-score less than or equal to -2.5 (DXA) at the femoral neck, total hip, or spine, after appropriate evaluation to exclude secondary causes. Low bone mass (T-score between -1.0 and -2.5 at the femoral neck or spine) AND a 10-year probability of a hip fracture greater than or equal to 3% OR a 10-year probability of a major osteoporosis-related fracture greater than or equal to 20% based on the [place]-adapted WHO algorithm Please note that all treatment decisions require clinical judgment and consideration of individual patient factors, including patient preferences, co-morbidities, previous drug use, risk factors not captured in the FRAX model (e.g., frailty, falls, vitamin D deficiency, increased bone turnover, interval significant decline in bone density) and possible under- or over-estimation of fracture risk by FRAX. Procedure Note Rylan Garcia MD - 10/24/2023 BONE DENSITY Lumbar Spine T-score is +2.4 (SD relative to 20-29 y/o adult) Z-score is +4.4 (SD relative to age matched peers) This is normal by criteria defined by the WHO. Left Hip T-score is -1.7 Z-score is 0.0 This is consistent with osteopenia by criteria defined by the WHO. Impression: Based on the World Health Organization criteria, Teresita Lange shouldbe classified as having osteopenia. This patient has a 21% risk of majorosteoporotic fracture and a 7.0% risk of hip fracture over the next 10years. (World Health Organization Fracture Risk Assessment) [facility] Department of Internal Medicine recommendsusing National Osteoporosis Foundation (NOF) guidelines in treatmentdecisions related to osteoporosis. NOF guidelines suggest consideringtreatment for postmenopausal women and men aged 50 or older presentingwith the following: History of hip or vertebral fracture. T-score less than or equal to -2.5 (DXA) at the femoral neck, total hip,or spine, after appropriate evaluation to exclude secondary causes. Low bone mass (T-score between -1.0 and -2.5 at the femoral neck or spine)AND a 10-year probability of a hip fracture greater than or equal to 3% ORa 10-year probability of a major osteoporosis-related fracture greaterthan or equal to 20% based on the [place]-adapted WHO algorithm Please note that all treatment decisions require clinical judgment andconsideration of individual patient factors, including patientpreferences, co-morbidities, previous drug use, risk factors not capturedin the FRAX model (e.g., frailty, falls, vitamin D deficiency, increasedbone turnover, interval significant decline in bone density) and possibleunder- or over-estimation of fracture risk by FRAX. Giuliano AMADOR IMG DXA PROCEDURES Final Result * Hepatitis C Screening (10/17/2017) [facility] Hepatitis C Screening abstracted Historical Provider HEALTH MAINTENANCE Final Result from Last 3 Months or Most Recently Relevant to Health Maintenance [facility] Heavy Mobile Equipment Repairer Relationship Specialty Start Date End Date Hubert Santos MD [address] [place] [id number] PCP - General 01/23/24
--- OUTSIDE RECORDS SUMMARY | 2025-05-06 12:10 | XMS_ITS | Patient Health Record ---
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 Role Phone Hubert Santos Primary Care Provider Unav ailable Black, Ame Unavailable [phone] Allergies Allergen (clinical drug ingredient) Drug/Non Drug Allergy documented on EMR Reaction Allergy Type Onset Date Status erythromycin Erythromycin Unknown Drug Allergy I nactive Reason For Referral No Information Medications Medication SIG (Take, Route, Frequency, Duration) Notes Start Date End Date Status Loratadine 10 MG 1 tablet Orally Once a day; Duration: 30 day(s) Not-Taking Roflumilast Active Advair HFA Not-Takin g hydroCHLOROthiazide 25 MG 1 tablet in th e morning Orally Once a day; Duration: 30 day(s) Active vitamin Not-Taking Saline Not-Taking Flonase Not-Taking Pramipexole Dihydrochloride 0.25 MG Oral; Duration: 90 Active Atorvastatin Calcium Not-Taking Trelegy Ellipta 100-62.5-25 MCG/ACT INHALE 1 PUFF INTO THE LUNGS DAILY Inhalation; Duration: 30 Days Active predniSONE Not-Takin g Cetirizine HCl 10 MG TAKE 1 TABLET BY MOUTH EVERY DAY Oral; Duration: 90 Days Active Montelukast Sodium 10 MG Oral; Duration: 30 Days Active Citracal Plus Active Vitamin B 12 Not-Tristan ing amLODIPine Besylate 5 MG Oral; Duration: 30 Days Active Atenolol 50 MG 1 tablet Orally Once a day; Duration: 30 day(s) Not-Taking Immunizations Vaccine Route Administration Date Status Comme nts Influenza Unknown 05/20/2024 Administered COVID-19 Moderna Vaccine Unknown 09/02/2021 Administered 1st 11/21/20 2nd dose: 12/19/2020 Social History Tobacco Use: Social History Observation Description Date Details (start date - stop date) Current Smoker NA - NA Tobacco use other than smoking: Question Answer Notes Are you an other tobacco user? Yes Tobacco Control (Standard) Question Answer Notes Tobacco use: Current smoker How often do you smoke cigarettes? Every day How many cigarettes a day do you smoke? 21-30 How soon after you wake up do you smoke your fir st cigarette? Within 5 minutes Are you interested in quitting? Not ready to gaby t AUDIT-C (Standard) Question Answer Notes Did you have a drink containing alcohol in the p ast year? No Points 0 Interpretation Negative Problems Problem Type SNOMED Code ICD Code Onset Dates Problem Status W/U Status Risk Notes Problem Plantar wart (77413917) Plantar wart (B07.0) Active confirmed Problem Acquired hammer toe of right foot (2790076221430207) Hammer toe of right foot (M20.41) Active confirmed Problem Acquired hammer toe of left foot (4070379465731883) Hammer toe of left foot (M20.42) Active confirmed Problem Mononeuropathy of lower limb (301225133) Neuritis of right foot (G57.91) Active confirmed Problem Bilateral atherosclerosis of arteries of lower limbs (disorder) (40883359127262856 ) Atherosclerosis of [place] artery of both lower extremities, with unspecified presence of clinical manifestation (I70.203) Active confirmed Q7(A), Q8(2B), Q9(1B,2 C) Problem Smoker (68178908) Smoker (F17.200) Active confi rmed Problem PlantarFlexion o f metatarsal of right foot (M21.6X1) Active confirmed Problem Mononeuritis (57837563) 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) Active confirmed Vital Signs Blood pressure diastolic 70 mm Hg 04/29/2025 Height 5ft in 04/29/2025 Blood pressure systolic 121 mm Hg 04/29/2025 Weight 151 lbs 04/29/2025 BMI 29.49 kg/m2 04/29/2025 Procedures Procedure Date Ordered Date Performed Result Body Sit e 24703-HNDOFKP NAIL, 6 OR MORE 06/28/2024 N/A 76692-Lkee Destruction, 1-14 06/28/2024 N/A 34218-Bkoblsrr Plate 06/28/2024 N/A 00419-MQLSFDS NAIL, 6 OR MORE 10/15/2024 N/A 50283-Zqye Destruction, 1-14 10/15/2024 N/A 04530-UXTQALB NAIL, 6 OR MORE 01/14/2025 N/A 87752-Vzct Destruction, 1-14 01/14/2025 N/A 82078-Ndqhfovi Plate 01/14/2025 N/A 62815-ZIBBFTB NAIL, 6 OR MORE 04/29/2025 N/A 56847-GBEQ SKIN LESIONS, 2 TO 4 04/29/2025 N/A Encounters Encounter Location Date Provider Diagnosis [address] [address] 06/28/2024 Ame Black Smoker F17.200 ; Plantar wart B07.0 ; Tinea unguium B35.1 ; Pain in right toe(s) M79.674 ; Pain in left toe(s) M79.675 ; Pain in left foot M79.672 and Ingrown nail L60.[address] [address] 10/15/2024 Ame Black Smoker F17.200 ; Plantar wart B07.0 ; Tinea unguium B35.1 ; Pain in right toe(s) M79.674 ; Pain in left toe(s) M79.675 and Pain in left foot M79.[address] [address] 01/14/2025 Ame Black Smoker F17.200 ; Plantar wart B07.0 ; Tinea unguium B35.1 ; Pain in right toe(s) M79.674 ; Pain in left toe(s) M79.675 ; Pain in left foot M79.672 and Ingrown nail L60.[address] [address] 04/29/2025 Ame Black Atherosclerosis of [place] artery of both lower extremities, with unspecified presence of clinical manifestation I70.203 ; Tinea unguium B35.1 ; Pain in right toe(s) M79.674 and Pain in left toe(s) M79.675 Assessments Encounter Date Diagnosis (ICD Code) Assessment Notes Treatment Notes Treatment Clinical Notes Section Notes 06/28/2024 Smoker (ICD-10 - F17.200) 10/15/2024 Smoker (ICD-10 - F17.200) 01/14/2025 Smoker (ICD-10 - F17.200) 04/29/2025 Atherosclerosis of [place] artery of both lower extremities, with unspecified presence of clinical manifestation (ICD-10 - I70.203) Q7(A), Q8(2B), Q9(1B,2C) 04/29/2025 Tinea unguium (ICD-10 - B35.1) 01/14/2025 Plantar wart (ICD-10 - B07.0) 10/15/2024 Tinea unguium (ICD-10 - B35.1) 06/28/2024 Plantar wart (ICD-10 - B07.0) 10/15/2024 Plantar wart (ICD-10 - B07.0) 06/28/2024 Tinea unguium (ICD-10 - B35.1) 10/15/2024 Pain in right toe(s) (ICD-10 - M79.674) 01/14/2025 Tinea unguium (ICD-10 - B35.1) 04/29/2025 Pain in right toe(s) (ICD-10 - M79.674) 01/14/2025 Pain in right toe(s) (ICD-10 - M79.674) 04/29/2025 Pain in left toe(s) (ICD-10 - M79.675) 10/15/2024 Pain in left toe(s) (ICD-10 - M79.675) 06/28/2024 Pain in right toe(s) (ICD-10 - M79.674) 06/28/2024 Pain in left toe(s) (ICD-10 - M79.675) 10/15/2024 Pain in left foot (ICD-10 - M79.672) 01/14/2025 Pain in left toe(s) (ICD-10 - M79.675) 01/14/2025 Pain in left foot (ICD-10 - M79.672) 06/28/2024 Pain in left foot (ICD-10 - M79.672) 06/28/2024 Ingrown nail (ICD-10 - L60.0) 01/14/2025 Ingrown nail (ICD-10 - L60.0) Plan Of Treatment Pending Test Test Name Order Date *Liver Function Test (LFT) 01/29/2019 41567-QSNVIWP NAIL, 6 OR MORE 01/29/2019 67899-CSYNXMQ NAIL, 6 OR MORE 04/30/2019 65618-HXQZWMI NAIL, 6 OR MORE 10/18/2019 06664-GJXFQEO NAIL, 6 OR MORE 02/21/2020 09703-HWSNQAR NAIL, 6 OR MORE 05/15/2020 86974-EVOEEFC NAIL, 6 OR MORE 07/17/2020 11757-LNBHLNY NAIL, 6 OR MORE 10/02/2020 22009-MQNSQEE NAIL, 6 OR MORE 12/18/2020 36252-RQQVMTR NAIL, 6 OR MORE 03/19/2021 33705-EGTVTYT NAIL, 6 OR MORE 07/06/2021 91085-KTFAKXZ NAIL, 6 OR MORE 10/12/2021 13278-WWQFWGJ NAIL, 6 OR MORE 01/11/2022 53534-OSHTZDV NAIL, 6 OR MORE 04/15/2022 20359-TFFNLRT NAIL, 6 OR MORE 07/15/2022 93083-TYOAJSN NAIL, 6 OR MORE 10/25/2022 75147-AZAPWBR NAIL, 6 OR MORE 01/31/2023 33071-GKHNZUK NAIL, 6 OR MORE 05/09/2023 14171-FUXBRLC NAIL, 6 OR MORE 08/08/2023 46199-PKCYPXG NAIL, 6 OR MORE 11/24/2023 89336-SCBCDQK NAIL, 6 OR MORE 03/08/2024 77649-XFPLGAL NAIL, 6 OR MORE 06/28/2024 58687-LTAFCOA NAIL, 6 OR MORE 10/15/2024 20621-ZNTUYZR NAIL, 6 OR MORE 01/14/2025 76264-DRACNBJ NAIL, 6 OR MORE 04/29/2025 21554-Ryeo Destruction, 1-14 01/14/2025 26079-Zglb Destruction, -14 10/15/2024 84455-Byot Destruction, -14 11/24/2023 69864-Wmag Destruction, -14 06/28/2024 11108-Lpxc Destruction, -14 03/08/2024 59085-Jjkg Destruction, -14 05/09/2023 67551-Eixx Destruction, -14 08/08/2023 59216-Dynq Destruction, -14 01/31/2023 72494-Ehoygdno Plate 05/09/2023 73929-Vqrgpkmr Plate 10/12/2021 95095-Wbsaoppp Plate 07/15/2022 10911-Kgngpbnk Plate 11/24/2023 38329-Rkfetvrd Plate 06/28/2024 68599-Ouhndmrq Plate 01/14/2025 64085-Pgyckpjz Plate 04/15/2022 11632-Jhxcuqqy Plate 12/18/2020 95623-Zhwvkafb Plate 07/06/2021 68191-Fxswlehm Plate 03/19/2021 29397-Ogncrzml Plate 07/17/2020 43557-Iwsmcfzf Plate 10/02/2020 61840-Ithfrqiz Plate 02/21/2020 82579-Qexdgnlp Plate 05/15/2020 24646-Wytvmtwd Plate 04/30/2019 26490-Mmqbzkbc Plate 01/29/2019 88277-Cndsjcad Plate 10/18/2019 85280-Ldebgske Plate Each Additional 80869-Dbortlef Plate Each Additional 08/2019 05378-Yewbwtgy Plate Each Additional 26057-Jqafnvkm Plate Each Additional 17723-Xvyogaum Plate Each Additional 60902-Lhoyspul Plate Each Additional 12/2019 18070-Uxbkihlj Plate Each Additional 10712-Asgrmktl Plate Each Additional 09/2020 88671-Ytisyvke Plate Each Additional 11886-Gotupbof Plate Each Additional 46338-Iexiygcp Plate Each Additional 03/2024 02232-Kpbdkjth Plate Each Additional 47775-Bzzcqsps Plate Each Additional 45148-GJMT SKIN LESIONS, 2 TO 4 04/29/20 25 Next Appt Details Provider Name:Ame Sánchez , 08/01/2025 11:00:00 AM, [address] [place], [address], Insurance Providers Payer Name Payer Address Payer Phone Subscriber Number Group Number Insured Name Patient Relationship to Insured Coverage Start Date Coverage End Date Medicare National Govt [facility] [address] [place] [address] [id number] Teresita Huber Self - patient is the insured [employer] [address] [place] [address] [id number] Teresita Huber Self - patient is the insured Medical (General) History Medical History History ICD Code Arthritis Back,Hip,and Knee pain High blood pressure Scarlet fever Measles Chicken pox COPD Surgical History Surgery Date(Month/Year)
--- OUTSIDE RECORDS SUMMARY | 2025-05-06 12:11 | XMS_ITS ---
Author Name [facility] Organization Unknown History of Medication Use Medication Directions Dispensed Refills Start Date End Date Stat amLODIPine (NORVASC) 5 mg tablet Take 1 tablet (5 mg total) by mouth 1 (one) time each day. 04/16/2025 active hydroCHLOROthiazide (HYDRODIURIL) 25 mg tablet Take 1 tablet (25 mg total) by mouth 1 (one) time each day. 04/16/2025 active sodium,potassium,mag sulfates (Suprep Bowel Prep Kit) 17.5-3.13-1.6 gram recon soln bowel prep kit oral solution Take 177ML by mouth for 2 doses. SEE INSTRUCTIONS PROVIDED BY OFFICE. 04/15/2025 active bisacodyL (DULCOLAX) 5 mg EC tablet Take 2 tablets by mouth right before beginning bowel prep. See instructions provided by the office 04/10/2025 active polyethylene glycol (Golytely) 236-22.74-6.74 -5.86 gram solution Take 4L by mouth once for one dose. May substitue any PEG. Starting at 2PM the day before your procedure drink 1 8oz glasses at your own pace until you complete half of the gallon. Finish 2nd half of the gallon at 8PM. 04/10/2025 active fluticasone propionate (FLONASE) 50 mcg/actuation nasal spray USE 1 SPRAY IN EACH NOSTRIL TWICE DAILY 02/15/2025 active aspirin 81 mg EC tablet Take 1 tablet (8 1 mg total) by mouth 1 (one) time each day. 02/14/2025 active cetirizine (ZyrTEC) 10 mg tablet Take 1 tablet (10 mg total) by mouth 1 (one) time each day. 02/14/2025 active cholecalciferol (VITAMIN D-3) 50 mcg (2,000 unit) tablet Take 1 tablet (2,000 Units total) by mouth 1 (one) time each day. 02/14/2025 active clindamycin (CLEOCIN T) 1 % gel Apply to area twice a day 02/14/2025 active rosuvastatin (CRESTOR) 10 mg tablet Take 1 tablet (10 mg total) by mouth at bedtime. 02/14/2025 active ipratropium-albuteroL (DUONEB) 0.5-2.5 mg/3 mL nebulizer solution Take 3 mL by nebulization every 6 (six) hours if needed for wheezing. 11/20/2024 active fluticasone-umeclidinium -vilanterol (Trelegy Ellipta) 100-62.5-25 mcg inhaler INHALE 1 PUFF INTO THE LUNGS DAILY 08/10/2024 active albuterol HFA (PROAIR HFA ; PROVENTIL HFA ; VENTOLIN HFA) 90 mcg/actuation inhaler Inhale 2 Puffs into the lungs every 6 hours as needed for Cough, Wheezing or Shortness of Breath. 12/16/2023 active montelukast (SINGULAIR) 10 mg tablet Take 1 Tablet by mouth at bedtime. 07/18/2023 active roflumilast (DALIRESP) 500 mcg tablet Take 1 Tablet by mouth daily. 07/18/2023 active pramipexole (MIRAPEX) 0.25 mg tablet Take 1 Tablet by mouth daily. 05/31/2023 active multivit-min/ferrous fumarate (MULTI VITAMIN ORAL) 1 qd active Problems Problem Status Onset Date Problem Type Date of Resolution Source Hyperlipidemia active 2010-01-12 ProblemAct [facility] Restless leg active 2022-11-10 ProblemAct [facility] Overweight (BMI 25.0-29.9) active 2023-07-01 ProblemAct [facility] Radiculitis, lumbosacral active 2010-03-05 ProblemAct [facility] COPD (chronic obstructive pulmonary disease) (CMS/HCC V24, CMS/HCC V28) active 2017-10-17 ProblemAct [facility] Degenerative arthritis of lumbar spine active 2010-03-05 ProblemAct [facility] Coronary artery calcification seen on CAT scan active 2025-02-14 ProblemAct [facility] Urge incontinence of urine active 2025-02-14 ProblemAct [facility] Herniated lumbar intervertebral disc active 2010-03-05 ProblemAct [facility] Encounter for screening mammogram for breast cancer active EncounterDiagnosisAct C [facility] Seasonal allergic rhinitis due to pollen active 2025-02-14 ProblemAct [facility] Tobacco use disorder active 2006-08-22 ProblemAct [facility] Osteopenia active 2023-07-01 ProblemAct [facility] Prolapse of female pelvic organs active 2025-02-14 ProblemAct [facility] Essential hypertension, benign active 2005-07-16 ProblemAct [facility] Serrated adenoma of colon active 2022-12-13 ProblemAct [facility] Immunizations Vaccine Date Source Lot Number Status Influenza trivalent, 0.5mL ( Fluzone High-dose) 65yo and older 05/25/2023 [facility] [id number] [facility] [place] RSV, bivalent, protein subun it RSVpreF, 0.5mL, Preservative Free (Arexvy) 60yo and older 05/25/2023 [facility] [id number] completed Pneumococcal conjugate 20 va lent (Prevnar 20, PCV 20) 2mo and older 05/12/2023 [facility] [id number] comple juanita Tdap Tetanus diptheria acell ular pertussis (Boostrix; Adacel) 7yo and older 05/12/2023 [facility] [id number] completed Influenza trivalent, 0.5mL ( Fluzone High-dose) 65yo and older 07/15/2022 [facility] 086677 comple [place] Moderna (age 6mo & older) Bi valent, COVID-19, 0.5 mL or 0.25 mL dosage 06/01/2022 [facility] [id number] completed Pfizer (ages 12 & older) Biv alent, COVID-19 06/01/2022 [facility] [id number] completed Influenza trivalent, 0.5mL ( Fluzone High-dose) 65yo and older 07/10/2021 [facility] [id number] [facility] [place] Tdap Tetanus diptheria acell ular pertussis (Boostrix; Adacel) 7yo and older 01/12/2010 [facility] [id number] completed PPD Test 08/05/2004 [facility]ABRICIO completed Care Team Organization Name Specialty Phone Email Start Date End Da te [facility] 07/27/2022 05/07/2024
== END 2025-05-06 11:10 | disposition home or self-care (01) ==
LOC: HO.HSM 10:58
PROVIDERS: PCP Family Medicine; Referring Provider Internal Medicine; Visit Provider Registered Nurse
DX: G25.81 Restless legs syndrome (principal)
CPT/HCPCS: 99213

== ENCOUNTER → 2025-05-06 10:58 | Outpatient (BNVA) | payer MEDICARE, OTHER, SELFPAY | PROVIDERS: PCP Family Medicine; Referring Provider Internal Medicine; Visit Provider Registered Nurse | DX: G25.81 Restless legs syndrome (principal) | CPT/HCPCS: 99212 ==